=== PATIENT | male | born 1950 | race Caucasian/White ===

== ENCOUNTER 2021-03-23 19:43 | Observation (INO) | payer MEDICARE, OTHER ==
[2021-03-23] MEDS ORDERED: LORazepam 2 MG/ML Syringe IM ONE (20:27)
[2021-03-23] MEDS ORDERED: Ondansetron 4 MG/2 ML SDV IVPUSH PRN (20:32)
--- NOTE | 2021-03-23 20:33 | EDM.PDOCBH ---
ED HPI GENERAL MEDICAL PROBLEM - General Chief Complaint: Drug or Alcohol Abuse Stated Complaint: DT'S Time Seen by Provider: 03/23/21 20:15 Source of Information: Reports: Patient, Family (god son), RN History Limitations: Reports: No Limitations - History of Present Illness INITIAL COMMENTS - FREE TEXT/NARRATIVE: Presents to the ER with complaints of shaking uncontrollably, alcoholism and possible withdrawals. He started drinking in September after being sober for about 6.5 years. Started with wine and then whiskey and now vodka. He states that he drinks at least 2 solo cups of vodka straight. Also drinking some wine with it. Today he has only had a few sips of vodka as he is shaking so bad that he can't hold the cup. He last ate last evening about 5pm. He has not had anything to eat today due to nausea. He states that he had 1 diarrhea stool when he got here. No blood in it. He did have white foamy emesis while here. No blood noted in the emesis. He denies any pain at this time. He complains of nausea. He has had some swelling to the lower legs that he feels started yesterday. States that his legs are so weak he can't walk on them. Onset: Gradual Location: Reports: Generalized - Related Data Allergies Allergy/AdvReac Type Severity Reaction Status Date / Time Penicillins Allergy Swelling Verified 03/23/21 20:48 Past Medical History Cardiovascular History: Reports: High Cholesterol, Hypertension Gastrointestinal History: Reports: GERD - Past Surgical History GI Surgical History: Reports: Appendectomy, Colonoscopy (states that he thinks he had perforated bowel after colonoscopy as he was in the hospital septic after one done.) Musculoskeletal Surgical History: Reports: Other (See Below) (ankle surgery) Social & Family History - Tobacco Use Tobacco Use Status *Q: Current Every Day Tobacco User - Alcohol Use Alcohol Use History: Yes Days Per Week of Alcohol Use: 7 Alcohol Use Frequency: Daily - Living Situation & Occupation Living situation: Reports: ED ROS GENERAL - Review of Systems Review Of Systems: See Below Constitutional: Reports: Weakness. Denies: Fever HEENT: Reports: No Symptoms Respiratory: Reports: No Symptoms Cardiovascular: Reports: Edema. Denies: Chest Pain GI/Abdominal: Reports: Diarrhea, Decreased Appetite, Vomiting. Denies: Abdominal Pain, Black Stool, Bloody Stool : Reports: No Symptoms Musculoskeletal: Reports: Other (leg weakness) Neurological: Reports: Difficulty Walking, Weakness. Denies: Seizure ED EXAM, BEHAVIORAL HEALTH - Physical Exam Exam: See Below Exam Limited By: No Limitations General Appearance: Alert, WD/WN, Moderate Distress Ears: Normal External Exam, Normal TMs Throat/Mouth: Normal Inspection, Normal Oropharynx, No Airway Compromise Head: Atraumatic, Normocephalic Neck: Normal Inspection, Supple, Non-Tender, Full Range of Motion Respiratory/Chest: No Respiratory Distress, Lungs Clear, Normal Breath Sounds. No: Rales, Rhonchi, Wheezing Cardiovascular: Regular Rate, Rhythm GI/Abdominal: Normal Bowel Sounds, Soft, Non-Tender Extremities: Pedal Edema (1+ to legs bilaterally from mid calf to the ankles.) Neurological: Alert, Normal Mood/Affect, Oriented x 3, Tremor (Has shaking to both upper extremities. Has some shaking to lower extremities but not as severe. ) Psychiatric: Alert, Normal Affect, Normal Cognition Skin Exam: Warm, Dry, Intact #1 Interpretation Rhythm: NSR [place]: Normal P-Wave: Present QRS: Normal ST-T: Normal QT: Normal COURSE, BEHAVIORAL HEALTH COMP - Course Orders, Labs, Meds: Active Orders 24 hr Category Date Time Status Chest 1V Frontal [CR] Routine Exams 03/23/21 Taken CORONAVIRUS COVID-19 RAPID [MOLEC] Routine Lab 03/23/21 21:07 Received Ondansetron [Zofran] Med 03/23/21 20:32 Active 4 mg IVPUSH Q6H PRN Medication Orders Ondansetron HCl (Ondansetron 4 Mg/2 Ml Sdv) 4 mg IVPUSH Q6H PRN PRN Reason: Nausea Last Admin: 03/23/21 20:40 Dose: 4 mg Documented by: ELENA Laboratory Tests 03/23/21 03/23/21 03/23/21 Range/Units 20:30 20:35 20:35 WBC 8.9 (4.0-11.0) 10^3/uL RBC 4.78 (4.50-6.00) x10^6/uL Hgb 15.6 (14.0-18.0) g/dL Hct 46.9 (42.0-52.0) % MCV 98.1 H (83.0-97.0) fL MCH 32.6 H (27.0-32.0) pg MCHC 33.3 (32.0-36.0) g/dL RDW Coeff of Bri 15.3 H (11.0-15.0) % Plt Count 143 L (150-400) 10^3/uL Immature Gran % (Auto) 0.2 (0.0-4.9) % Neut % (Auto) 81.3 H (41-71) % Lymph % (Auto) 8.2 L (24-44) % Towns % (Auto) 9.8 (0-10) % Eos % (Auto) 0.2 (0-6) % Baso % (Auto) 0.3 (0-1) % Neut # (Auto) 7.18 (1.80-8.00) x10^3/uL Lymph # (Auto) 0.73 (0.60-5.00) 10^3/uL Towns # (Auto) 0.87 (0.00-1.50) 10^3/uL Eos # (Auto) 0.02 (0.00-1.50) 10^3/uL Baso # (Auto) 0.03 (0.00-0.50) 10^3/uL Immature Gran # (Auto) 0.02 (0.00-0.49) 10^3/uL PT (9.7-12.3) SEC INR (0.92-1.18) APTT (23.2-32.3) SEC Sodium 143 (136-145) mEq/L Potassium 3.8 (3.5-5.0) mEq/L Chloride 100 (98-106) mEq/L Carbon Dioxide 20 L (21-32) mmol/L BUN 11 (7-18) mg/dL Creatinine 1.5 H (0.7-1.3) mg/dL Est Cr Clr Drug Dosing TNP Estimated GFR (MDRD) 46 L (>=60) mL/min Glucose 135 H (75-99) mg/dL Calcium 8.9 (8.4-10.1) mg/dL Total Bilirubin 0.6 (0.0-1.0) mg/dL AST 44 H (15-37) U/L ALT 79 H (12-78) U/L Alkaline Phosphatase 98 (46-116) U/L Lactate Dehydrogenase 236 H (100-190) U/L Creatine Kinase 266 H (35-232) U/L Troponin I High Sens 12.3 (<=76) pg/mL Total Protein 8.2 (6.4-8.2) g/dL Albumin 4.2 (3.4-5.0) g/dL Lipase 161 (73-393) U/L Urine Color (YELLOW) Urine Appearance (CLEAR) Urine pH (4.5-8.0) Ur Specific [place] (1.003-1.020) Urine Protein (NEGATIVE) mg/dL Urine Glucose (UA) (NEGATIVE) mg/dL Urine Ketones (NEGATIVE) mg/dL Urine Occult Blood (NEGATIVE) Urine Nitrite (NEGATIVE) Urine Bilirubin (NEGATIVE) Urine Urobilinogen (0.2-1.0) EU/dL Ur Leukocyte Esterase (NEGATIVE) Urine RBC (0-5) /HPF Urine WBC (0-5) /HPF Ur Squamous Epith Cells (NOT SEEN) /HPF Urine Bacteria (NOT SEEN) /HPF Ethyl Alcohol < 3 (0-3) mg/dL 03/23/21 03/23/21 Range/Units 20:35 20:35 WBC (4.0-11.0) 10^3/uL RBC (4.50-6.00) x10^6/uL Hgb (14.0-18.0) g/dL Hct (42.0-52.0) % MCV (83.0-97.0) fL MCH (27.0-32.0) pg MCHC (32.0-36.0) g/dL RDW Coeff of Bri (11.0-15.0) % Plt Count (150-400) 10^3/uL Immature Gran % (Auto) (0.0-4.9) % Neut % (Auto) (41-71) % Lymph % (Auto) (24-44) % Towns % (Auto) (0-10) % Eos % (Auto) (0-6) % Baso % (Auto) (0-1) % Neut # (Auto) (1.80-8.00) x10^3/uL Lymph # (Auto) (0.60-5.00) 10^3/uL Towns # (Auto) (0.00-1.50) 10^3/uL Eos # (Auto) (0.00-1.50) 10^3/uL Baso # (Auto) (0.00-0.50) 10^3/uL Immature Gran # (Auto) (0.00-0.49) 10^3/uL PT 9.5 L (9.7-12.3) SEC INR 0.86 L (0.92-1.18) APTT 23.4 (23.2-32.3) SEC Sodium (136-145) mEq/L Potassium (3.5-5.0) mEq/L Chloride (98-106) mEq/L Carbon Dioxide (21-32) mmol/L BUN (7-18) mg/dL Creatinine (0.7-1.3) mg/dL Est Cr Clr Drug Dosing Estimated GFR (MDRD) (>=60) mL/min Glucose (75-99) mg/dL Calcium (8.4-10.1) mg/dL Total Bilirubin (0.0-1.0) mg/dL AST (15-37) U/L ALT (12-78) U/L Alkaline Phosphatase (46-116) U/L Lactate Dehydrogenase (100-190) U/L Creatine Kinase (35-232) U/L Troponin I High Sens (<=76) pg/mL Total Protein (6.4-8.2) g/dL Albumin (3.4-5.0) g/dL Lipase (73-393) U/L Urine Color Yellow (YELLOW) Urine Appearance Clear (CLEAR) Urine pH 6.0 (4.5-8.0) Ur Specific [place] >= 1.030 H (1.003-1.020) Urine Protein 100 H (NEGATIVE) mg/dL Urine Glucose (UA) Negative (NEGATIVE) mg/dL Urine Ketones 40 H (NEGATIVE) mg/dL Urine Occult Blood Moderate H (NEGATIVE) Urine Nitrite Negative (NEGATIVE) Urine Bilirubin Negative (NEGATIVE) Urine Urobilinogen 0.2 (0.2-1.0) EU/dL Ur Leukocyte Esterase Negative (NEGATIVE) Urine RBC 5-10 H (0-5) /HPF Urine WBC 5-10 H (0-5) /HPF Ur Squamous Epith Cells Few H (NOT SEEN) /HPF Urine Bacteria Few H (NOT SEEN) /HPF Ethyl Alcohol (0-3) mg/dL Medications Generic Name Dose Route Start Last Admin Trade Name Freq PRN Reason Stop Dose Admin Ondansetron HCl 4 mg 03/23/21 20:32 03/23/21 20:40 Ondansetron 4 Mg/2 Ml Sdv IVPUSH 4 mg Q6H PRN Administration Nausea Discontinued Medications Generic Name Dose Route Start Last Admin Trade Name Freq PRN Reason Stop Dose Admin Lorazepam 1 mg 03/23/21 20:27 03/23/21 20:53 Lorazepam 2 Mg/Ml Syringe IM 03/23/21 20:28 Not Given ONETIME ONE Lorazepam 1 mg 03/23/21 20:56 03/23/21 20:43 Lorazepam 2 Mg/Ml Syringe IVPUSH 03/23/21 20:57 1 mg ONETIME ONE Administration Ondansetron HCl Confirm 03/23/21 20:59 03/23/21 20:42 Ondansetron 4 Mg/2 Ml Sdv Administered 03/23/21 21:00 Not Given Dose 4 mg .ROUTE .STK-MED ONE Re-Assessment/Re-Exam: due to him not being able to walk without assistance, dehydration, unco ntrollable shaking, vomiting and concerns for DT's he will be admitted and observed closely for DT's. Discussed with pt the need to consider rehab and he is willing to do so and would choose to go to [facility] as that is where he is from when not living in [place]. Departure - Departure Time of Disposition: 21:23 Disposition: Refer to Observation Condition: Fair Clinical Impression: Alcohol abuse, Weakness generalized Alcohol withdrawal syndrome Qualifiers: Complication of substance-induced condition: uncomplicated Qualified Code(s): F10.230 - Alcohol dependence with withdrawal, uncomplicated Vomiting Qualifiers: Vomiting type: unspecified Vomiting Intractability: non-intractable Nausea presence: with nausea Qualified Code(s): R11.2 - Nausea with vomiting, unspecified Hypertension Qualifiers: Hypertension type: primary hypertension Qualified Code(s): I10 - Essential (primary) hypertension - Discharge Information *PRESCRIPTION DRUG MONITORING PROGRAM REVIEWED*: Not Applicable *COPY OF PRESCRIPTION DRUG MONITORING REPORT IN PATIENT [place]: Not Applicable Forms: ED Department Discharge - Problem List & Annotations (1) Alcohol abuse SNOMED Code(s): 69778929 Code(s): F10.10 - ALCOHOL ABUSE, UNCOMPLICATED Status: Acute Priority: High Current Visit: Yes (2) Alcohol withdrawal syndrome SNOMED Code(s): 179888493 Code(s): F10.239 - ALCOHOL DEPENDENCE WITH WITHDRAWAL, UNSPECIFIED Status: Acute Priority: High Current Visit: Yes Qualifiers: Complication of substance-induced condition: uncomplicated Qualified Code(s): F10.230 - Alcohol dependence with withdrawal, uncomplicated (3) Hypertension SNOMED Code(s): 75017034 Code(s): I10 - ESSENTIAL (PRIMARY) HYPERTENSION Status: Chronic Priority: Low Current Visit: Yes Qualifiers: Hypertension type: primary hypertension Qualified Code(s): I10 - Essential (primary) hypertension (4) Vomiting SNOMED Code(s): 352184484 Code(s): R11.10 - VOMITING, UNSPECIFIED Status: Acute Priority: High Current Visit: Yes Qualifiers: Vomiting type: unspecified Vomiting Intractability: non-intractable Nausea presence: with nausea Qualified Code(s): R11.2 - Nausea with vomiting, unspecified (5) Weakness generalized SNOMED Code(s): 41081030 Code(s): R53.1 - WEAKNESS Status: Acute Priority: High Current Visit: Yes - Problem List Review Problem List Initiated/Reviewed/Updated: Yes - My Orders Last 24 Hours: My Active Orders 03/23/21 Chest 1V Frontal [CR] Routine 03/23/21 20:32 Ondansetron [Zofran] 4 mg IVPUSH Q6H PRN 03/23/21 21:07 CORONAVIRUS COVID-19 RAPID [MOLEC] Routine - Assessment/Plan Admission H&P: Please use this note as an admission H&P Last 24 Hours: My Active Orders 03/23/21 Chest 1V Frontal [CR] Routine 03/23/21 20:32 Ondansetron [Zofran] 4 mg IVPUSH Q6H PRN 03/23/21 21:07 CORONAVIRUS COVID-19 RAPID [MOLEC] Routine Plan: Plan is to admit observation with IV hydration and monitor for DT's. Will treat the nausea and vomiting with zofran, protonix and slowly start diet. Plan is to get treatment for the alcoholism
[2021-03-23 20:54] LABS: PTT,PARTIAL THROMBOPLSTIN TIME 23.4 SEC (23.2-32.3)
[2021-03-23 20:55] LABS: CHLORIDE,CL 100 mEq/L (98-106); SODIUM,NA 143 mEq/L (136-145)
[2021-03-23] MEDS ORDERED: LORazepam 2 MG/ML Syringe IVPUSH ONE (20:56)
[2021-03-23] MEDS ORDERED: Ondansetron 4 MG/2 ML SDV ONE (20:59)
[2021-03-23] MEDS ORDERED: LORazepam 2 MG/ML Syringe IVPUSH PRN (21:28)
[2021-03-23] MEDS ORDERED: Ondansetron 4 MG/2 ML SDV IV PRN (21:28)
[2021-03-23] MEDS: Sodium Chloride 0.9% 1,000 ML IV SCH (22:59)
[2021-03-23] MEDS: Pantoprazole 40 MG Vial IVPUSH SCH (23:00)
[2021-03-23] MEDS: Folic Acid 1 MG, Multivitamins 1 TAB, Thiamine 100 MG, Magnesium Oxide 500 MG PO SCH ×4 (23:01)
[2021-03-24] MEDS: Acetaminophen 325 MG Tab PO PRN ×2 (00:24→23:21)
[2021-03-24] MEDS: Sodium Chloride 0.9% 1,000 ML IV SCH ×3 (06:20→22:26)
[2021-03-24] MEDS: Folic Acid 1 MG, Multivitamins 1 TAB, Thiamine 100 MG, Magnesium Oxide 500 MG PO SCH ×4 (08:25)
[2021-03-24 09:27] LABS: CHLORIDE,CL 105 mEq/L (98-106); SODIUM,NA 140 mEq/L (136-145)
[2021-03-24] MEDS: Pantoprazole 40 MG Vial IVPUSH SCH ×2 (10:58→20:36)
--- NOTE | 2021-03-24 18:29 | PCM.PN ---
- General Info Date of Service: 03/24/21 Admission Dx/Problem (Free Text): Alcohol withdrawal Subjective Update: Jerrod is a 70 yo male who was admitted to the hospital from the ED yesterday secondary to alcohol withdrawal. Patient had quit drinking for 6.5 years but recently started in September again. He was extremely weak and shaking on admit. He states today he is feeling a little better. Nausea has mostly subsided. No emesis. States he continues to be shaky but feels it is better as well. States he does have a dull headache today. - Review of Systems General: Reports: Weakness HEENT: Reports: No Symptoms Pulmonary: Reports: No Symptoms Cardiovascular: Reports: No Symptoms Gastrointestinal: Reports: No Symptoms Genitourinary: Reports: No Symptoms Musculoskeletal: Reports: No Symptoms Skin: Reports: No Symptoms Neurological: Reports: Headache, Tremors Psychiatric: Reports: No Symptoms - Patient Data Vitals - Most Recent: Last Vital Signs Temp 98.9 F 03/24/21 17:35 Pulse 71 03/24/21 17:35 Resp 18 03/24/21 17:35 BP 145/94 H 03/24/21 17:35 Pulse Ox 93 L 03/24/21 17:35 Weight - Most Recent: 222 lb 14.4 oz I&O - Last 24 Hours: Intake & Output 03/24/21 03/24/21 03/24/21 06:59 14:59 22:59 Intake Total 7475 378 7797 Output Total 1025 1525 Balance 594 996 75 Lab Results Last 24 Hours: Laboratory Results - last 24 hr 03/23/21 03/23/21 03/23/21 Range/Units 20:30 20:35 20:35 WBC 8.9 (4.0-11.0) 10^3/uL RBC 4.78 (4.50-6.00) x10^6/uL Hgb 15.6 (14.0-18.0) g/dL Hct 46.9 (42.0-52.0) % MCV 98.1 H (83.0-97.0) fL MCH 32.6 H (27.0-32.0) pg MCHC 33.3 (32.0-36.0) g/dL RDW Coeff of Bri 15.3 H (11.0-15.0) % Plt Count 143 L (150-400) 10^3/uL Immature Gran % (Auto) 0.2 (0.0-4.9) % Neut % (Auto) 81.3 H (41-71) % Lymph % (Auto) 8.2 L (24-44) % [place] % (Auto) 9.8 (0-10) % Eos % (Auto) 0.2 (0-6) % Baso % (Auto) 0.3 (0-1) % Neut # (Auto) 7.18 (1.80-8.00) x10^3/uL Lymph # (Auto) 0.73 (0.60-5.00) 10^3/uL [place] # (Auto) 0.87 (0.00-1.50) 10^3/uL Eos # (Auto) 0.02 (0.00-1.50) 10^3/uL Baso # (Auto) 0.03 (0.00-0.50) 10^3/uL Immature Gran # (Auto) 0.02 (0.00-0.49) 10^3/uL PT (9.7-12.3) SEC INR (0.92-1.18) APTT (23.2-32.3) SEC Sodium 143 (136-145) mEq/L Potassium 3.8 (3.5-5.0) mEq/L Chloride 100 (98-106) mEq/L Carbon Dioxide 20 L (21-32) mmol/L BUN 11 (7-18) mg/dL Creatinine 1.5 H (0.7-1.3) mg/dL Est Cr Clr Drug Dosing TNP Estimated GFR (MDRD) 46 L (>=60) mL/min Glucose 135 H (75-99) mg/dL Calcium 8.9 (8.4-10.1) mg/dL Magnesium (1.8-2.4) mg/dL Total Bilirubin 0.6 (0.0-1.0) mg/dL AST 44 H (15-37) U/L ALT 79 H (12-78) U/L Alkaline Phosphatase 98 (46-116) U/L Lactate Dehydrogenase 236 H (100-190) U/L Creatine Kinase 266 H (35-232) U/L Troponin I High Sens 12.3 (<=76) pg/mL Total Protein 8.2 (6.4-8.2) g/dL Albumin 4.2 (3.4-5.0) g/dL Lipase 161 (73-393) U/L Urine Color (YELLOW) Urine Appearance (CLEAR) Urine pH (4.5-8.0) Ur Specific [place] (1.003-1.020) Urine Protein (NEGATIVE) mg/dL Urine Glucose (UA) (NEGATIVE) mg/dL Urine Ketones (NEGATIVE) mg/dL Urine Occult Blood (NEGATIVE) Urine Nitrite (NEGATIVE) Urine Bilirubin (NEGATIVE) Urine Urobilinogen (0.2-1.0) EU/dL Ur Leukocyte Esterase (NEGATIVE) Urine RBC (0-5) /HPF Urine WBC (0-5) /HPF Ur Squamous Epith Cells (NOT SEEN) /HPF Urine Bacteria (NOT SEEN) /HPF Ethyl Alcohol < 3 (0-3) mg/dL SARS CoV-2 RNA Rapid WESLY (NEGATIVE) 03/23/21 03/23/21 03/23/21 Range/Units 20:35 20:35 21:07 WBC (4.0-11.0) 10^3/uL RBC (4.50-6.00) x10^6/uL Hgb (14.0-18.0) g/dL Hct (42.0-52.0) % MCV (83.0-97.0) fL MCH (27.0-32.0) pg MCHC (32.0-36.0) g/dL RDW Coeff of Bri (11.0-15.0) % Plt Count (150-400) 10^3/uL Immature Gran % (Auto) (0.0-4.9) % Neut % (Auto) (41-71) % Lymph % (Auto) (24-44) % [place] % (Auto) (0-10) % Eos % (Auto) (0-6) % Baso % (Auto) (0-1) % Neut # (Auto) (1.80-8.00) x10^3/uL Lymph # (Auto) (0.60-5.00) 10^3/uL [place] # (Auto) (0.00-1.50) 10^3/uL Eos # (Auto) (0.00-1.50) 10^3/uL Baso # (Auto) (0.00-0.50) 10^3/uL Immature Gran # (Auto) (0.00-0.49) 10^3/uL PT 9.5 L (9.7-12.3) SEC INR 0.86 L (0.92-1.18) APTT 23.4 (23.2-32.3) SEC Sodium (136-145) mEq/L Potassium (3.5-5.0) mEq/L Chloride (98-106) mEq/L Carbon Dioxide (21-32) mmol/L BUN (7-18) mg/dL Creatinine (0.7-1.3) mg/dL Est Cr Clr Drug Dosing Estimated GFR (MDRD) (>=60) mL/min Glucose (75-99) mg/dL Calcium (8.4-10.1) mg/dL Magnesium (1.8-2.4) mg/dL Total Bilirubin (0.0-1.0) mg/dL AST (15-37) U/L ALT (12-78) U/L Alkaline Phosphatase (46-116) U/L Lactate Dehydrogenase (100-190) U/L Creatine Kinase (35-232) U/L Troponin I High Sens (<=76) pg/mL Total Protein (6.4-8.2) g/dL Albumin (3.4-5.0) g/dL Lipase (73-393) U/L Urine Color Yellow (YELLOW) Urine Appearance Clear (CLEAR) Urine pH 6.0 (4.5-8.0) Ur Specific [place] >= 1.030 H (1.003-1.020) Urine Protein 100 H (NEGATIVE) mg/dL Urine Glucose (UA) Negative (NEGATIVE) mg/dL Urine Ketones 40 H (NEGATIVE) mg/dL Urine Occult Blood Moderate H (NEGATIVE) Urine Nitrite Negative (NEGATIVE) Urine Bilirubin Negative (NEGATIVE) Urine Urobilinogen 0.2 (0.2-1.0) EU/dL Ur Leukocyte Esterase Negative (NEGATIVE) Urine RBC 5-10 H (0-5) /HPF Urine WBC 5-10 H (0-5) /HPF Ur Squamous Epith Cells Few H (NOT SEEN) /HPF Urine Bacteria Few H (NOT SEEN) /HPF Ethyl Alcohol (0-3) mg/dL SARS CoV-2 RNA Rapid WESLY Negative (NEGATIVE) 03/24/21 Range/Units 09:17 WBC (4.0-11.0) 10^3/uL RBC (4.50-6.00) x10^6/uL Hgb (14.0-18.0) g/dL Hct (42.0-52.0) % MCV (83.0-97.0) fL MCH (27.0-32.0) pg MCHC (32.0-36.0) g/dL RDW Coeff of Bri (11.0-15.0) % Plt Count (150-400) 10^3/uL Immature Gran % (Auto) (0.0-4.9) % Neut % (Auto) (41-71) % Lymph % (Auto) (24-44) % [place] % (Auto) (0-10) % Eos % (Auto) (0-6) % Baso % (Auto) (0-1) % Neut # (Auto) (1.80-8.00) x10^3/uL Lymph # (Auto) (0.60-5.00) 10^3/uL [place] # (Auto) (0.00-1.50) 10^3/uL Eos # (Auto) (0.00-1.50) 10^3/uL Baso # (Auto) (0.00-0.50) 10^3/uL Immature Gran # (Auto) (0.00-0.49) 10^3/uL PT (9.7-12.3) SEC INR (0.92-1.18) APTT (23.2-32.3) SEC Sodium 140 (136-145) mEq/L Potassium 3.6 (3.5-5.0) mEq/L Chloride 105 (98-106) mEq/L Carbon Dioxide 27 (21-32) mmol/L BUN 10 (7-18) mg/dL Creatinine 1.0 (0.7-1.3) mg/dL Est Cr Clr Drug Dosing 69.96 Estimated GFR (MDRD) > 60 (>=60) mL/min Glucose 102 H (75-99) mg/dL Calcium 8.0 L (8.4-10.1) mg/dL Magnesium 1.7 L (1.8-2.4) mg/dL Total Bilirubin (0.0-1.0) mg/dL AST (15-37) U/L ALT (12-78) U/L Alkaline Phosphatase (46-116) U/L Lactate Dehydrogenase (100-190) U/L Creatine Kinase (35-232) U/L Troponin I High Sens (<=76) pg/mL Total Protein (6.4-8.2) g/dL Albumin (3.4-5.0) g/dL Lipase (73-393) U/L Urine Color (YELLOW) Urine Appearance (CLEAR) Urine pH (4.5-8.0) Ur Specific [place] (1.003-1.020) Urine Protein (NEGATIVE) mg/dL Urine Glucose (UA) (NEGATIVE) mg/dL Urine Ketones (NEGATIVE) mg/dL Urine Occult Blood (NEGATIVE) Urine Nitrite (NEGATIVE) Urine Bilirubin (NEGATIVE) Urine Urobilinogen (0.2-1.0) EU/dL Ur Leukocyte Esterase (NEGATIVE) Urine RBC (0-5) /HPF Urine WBC (0-5) /HPF Ur Squamous Epith Cells (NOT SEEN) /HPF Urine Bacteria (NOT SEEN) /HPF Ethyl Alcohol (0-3) mg/dL SARS CoV-2 RNA Rapid WESLY (NEGATIVE) Med Orders - Current: Current Medications Acetaminophen (Acetaminophen 325 Mg Tab) 650 mg PO Q4H PRN PRN Reason: Pain (Mild 1-3)/fever Last Admin: 03/24/21 00:24 Dose: 650 mg Documented by: Folic Acid 1 mg/ Multivitamins /Minerals/Vitamin C 1 tab/Thiamine HCl 100 mg/ Magnesium Oxide 500 mg 0 mg PO DAILY [facility] Last Admin: 03/24/21 08:25 Dose: 1 each Documented by: Enoxaparin Sodium (Enoxaparin 40 Mg/0.4 Ml Syringe) 40 mg SUBCUT Q24H [facility] Sodium Chloride (Normal Saline) 1,000 mls @ 125 mls/hr IV ASDIRECTED [facility] Last Admin: 03/24/21 14:18 Dose: 125 mls/hr Documented by: Lorazepam (Lorazepam 2 Mg/Ml Syringe) 1 mg IVPUSH Q6H PRN PRN Reason: Nausea/Vomiting Last Admin: 03/24/21 01:52 Dose: 1 mg Documented by: Ondansetron HCl (Ondansetron 4 Mg/2 Ml Sdv) 4 mg IV Q6H PRN PRN Reason: Nausea/Vomiting Pantoprazole Sodium (Pantoprazole 40 Mg Vial) 40 mg IVPUSH Q12H [facility] Last Admin: 03/24/21 10:58 Dose: 40 mg Documented by: Discontinued Medications Lorazepam (Lorazepam 2 Mg/Ml Syringe) 1 mg IM ONETIME ONE Stop: 03/23/21 20:28 Last Admin: 03/23/21 20:53 Dose: Not Given Documented by: Lorazepam (Lorazepam 2 Mg/Ml Syringe) 1 mg IVPUSH ONETIME ONE Stop: 03/23/21 20:57 Last Admin: 03/23/21 20:43 Dose: 1 mg Documented by: Ondansetron HCl (Ondansetron 4 Mg/2 Ml Sdv) 4 mg IVPUSH Q6H PRN PRN Reason: Nausea Last Admin: 03/23/21 20:40 Dose: 4 mg Documented by: Ondansetron HCl (Ondansetron 4 Mg/2 Ml Sdv) Confirm Administered Dose 4 mg .ROUTE .STK-MED ONE Stop: 03/23/21 21:00 Last Admin: 03/23/21 20:42 Dose: Not Given Documented by: - Exam General: Alert, Oriented, Cooperative, Mild Distress Neck: Supple Lungs: Clear to Auscultation, Normal Respiratory Effort Cardiovascular: Regular Rate, Regular Rhythm, No Murmurs GI/Abdominal Exam: Normal Bowel Sounds, Soft, Non-Tender, No Distention Skin: Warm, Dry, Intact Neurological: No New Focal Deficit, Other (shaking to bilateral upper and lower extremities. ) Psy/Mental Status: Alert, Normal Affect, Normal Mood - Patient Data Lab Results Last 24 hrs: Laboratory Results - last 24 hr 03/23/21 03/23/21 03/23/21 Range/Units 20:30 20:35 20:35 WBC 8.9 (4.0-11.0) 10^3/uL RBC 4.78 (4.50-6.00) x10^6/uL Hgb 15.6 (14.0-18.0) g/dL Hct 46.9 (42.0-52.0) % MCV 98.1 H (83.0-97.0) fL MCH 32.6 H (27.0-32.0) pg MCHC 33.3 (32.0-36.0) g/dL RDW Coeff of Bri 15.3 H (11.0-15.0) % Plt Count 143 L (150-400) 10^3/uL Immature Gran % (Auto) 0.2 (0.0-4.9) % Neut % (Auto) 81.3 H (41-71) % Lymph % (Auto) 8.2 L (24-44) % [place] % (Auto) 9.8 (0-10) % Eos % (Auto) 0.2 (0-6) % Baso % (Auto) 0.3 (0-1) % Neut # (Auto) 7.18 (1.80-8.00) x10^3/uL Lymph # (Auto) 0.73 (0.60-5.00) 10^3/uL [place] # (Auto) 0.87 (0.00-1.50) 10^3/uL Eos # (Auto) 0.02 (0.00-1.50) 10^3/uL Baso # (Auto) 0.03 (0.00-0.50) 10^3/uL Immature Gran # (Auto) 0.02 (0.00-0.49) 10^3/uL PT (9.7-12.3) SEC INR (0.92-1.18) APTT (23.2-32.3) SEC Sodium 143 (136-145) mEq/L Potassium 3.8 (3.5-5.0) mEq/L Chloride 100 (98-106) mEq/L Carbon Dioxide 20 L (21-32) mmol/L BUN 11 (7-18) mg/dL Creatinine 1.5 H (0.7-1.3) mg/dL Est Cr Clr Drug Dosing TNP Estimated GFR (MDRD) 46 L (>=60) mL/min Glucose 135 H (75-99) mg/dL Calcium 8.9 (8.4-10.1) mg/dL Magnesium (1.8-2.4) mg/dL Total Bilirubin 0.6 (0.0-1.0) mg/dL AST 44 H (15-37) U/L ALT 79 H (12-78) U/L Alkaline Phosphatase 98 (46-116) U/L Lactate Dehydrogenase 236 H (100-190) U/L Creatine Kinase 266 H (35-232) U/L Troponin I High Sens 12.3 (<=76) pg/mL Total Protein 8.2 (6.4-8.2) g/dL Albumin 4.2 (3.4-5.0) g/dL Lipase 161 (73-393) U/L Urine Color (YELLOW) Urine Appearance (CLEAR) Urine pH (4.5-8.0) Ur Specific [place] (1.003-1.020) Urine Protein (NEGATIVE) mg/dL Urine Glucose (UA) (NEGATIVE) mg/dL Urine Ketones (NEGATIVE) mg/dL Urine Occult Blood (NEGATIVE) Urine Nitrite (NEGATIVE) Urine Bilirubin (NEGATIVE) Urine Urobilinogen (0.2-1.0) EU/dL Ur Leukocyte Esterase (NEGATIVE) Urine RBC (0-5) /HPF Urine WBC (0-5) /HPF Ur Squamous Epith Cells (NOT SEEN) /HPF Urine Bacteria (NOT SEEN) /HPF Ethyl Alcohol < 3 (0-3) mg/dL SARS CoV-2 RNA Rapid WESLY (NEGATIVE) 03/23/21 03/23/21 03/23/21 Range/Units 20:35 20:35 21:07 WBC (4.0-11.0) 10^3/uL RBC (4.50-6.00) x10^6/uL Hgb (14.0-18.0) g/dL Hct (42.0-52.0) % MCV (83.0-97.0) fL MCH (27.0-32.0) pg MCHC (32.0-36.0) g/dL RDW Coeff of Bri (11.0-15.0) % Plt Count (150-400) 10^3/uL Immature Gran % (Auto) (0.0-4.9) % Neut % (Auto) (41-71) % Lymph % (Auto) (24-44) % [place] % (Auto) (0-10) % Eos % (Auto) (0-6) % Baso % (Auto) (0-1) % Neut # (Auto) (1.80-8.00) x10^3/uL Lymph # (Auto) (0.60-5.00) 10^3/uL [place] # (Auto) (0.00-1.50) 10^3/uL Eos # (Auto) (0.00-1.50) 10^3/uL Baso # (Auto) (0.00-0.50) 10^3/uL Immature Gran # (Auto) (0.00-0.49) 10^3/uL PT 9.5 L (9.7-12.3) SEC INR 0.86 L (0.92-1.18) APTT 23.4 (23.2-32.3) SEC Sodium (136-145) mEq/L Potassium (3.5-5.0) mEq/L Chloride (98-106) mEq/L Carbon Dioxide (21-32) mmol/L BUN (7-18) mg/dL Creatinine (0.7-1.3) mg/dL Est Cr Clr Drug Dosing Estimated GFR (MDRD) (>=60) mL/min Glucose (75-99) mg/dL Calcium (8.4-10.1) mg/dL Magnesium (1.8-2.4) mg/dL Total Bilirubin (0.0-1.0) mg/dL AST (15-37) U/L ALT (12-78) U/L Alkaline Phosphatase (46-116) U/L Lactate Dehydrogenase (100-190) U/L Creatine Kinase (35-232) U/L Troponin I High Sens (<=76) pg/mL Total Protein (6.4-8.2) g/dL Albumin (3.4-5.0) g/dL Lipase (73-393) U/L Urine Color Yellow (YELLOW) Urine Appearance Clear (CLEAR) Urine pH 6.0 (4.5-8.0) Ur Specific [place] >= 1.030 H (1.003-1.020) Urine Protein 100 H (NEGATIVE) mg/dL Urine Glucose (UA) Negative (NEGATIVE) mg/dL Urine Ketones 40 H (NEGATIVE) mg/dL Urine Occult Blood Moderate H (NEGATIVE) Urine Nitrite Negative (NEGATIVE) Urine Bilirubin Negative (NEGATIVE) Urine Urobilinogen 0.2 (0.2-1.0) EU/dL Ur Leukocyte Esterase Negative (NEGATIVE) Urine RBC 5-10 H (0-5) /HPF Urine WBC 5-10 H (0-5) /HPF Ur Squamous Epith Cells Few H (NOT SEEN) /HPF Urine Bacteria Few H (NOT SEEN) /HPF Ethyl Alcohol (0-3) mg/dL SARS CoV-2 RNA Rapid WESLY Negative (NEGATIVE) 03/24/21 Range/Units 09:17 WBC (4.0-11.0) 10^3/uL RBC (4.50-6.00) x10^6/uL Hgb (14.0-18.0) g/dL Hct (42.0-52.0) % MCV (83.0-97.0) fL MCH (27.0-32.0) pg MCHC (32.0-36.0) g/dL RDW Coeff of Bri (11.0-15.0) % Plt Count (150-400) 10^3/uL Immature Gran % (Auto) (0.0-4.9) % Neut % (Auto) (41-71) % Lymph % (Auto) (24-44) % [place] % (Auto) (0-10) % Eos % (Auto) (0-6) % Baso % (Auto) (0-1) % Neut # (Auto) (1.80-8.00) x10^3/uL Lymph # (Auto) (0.60-5.00) 10^3/uL [place] # (Auto) (0.00-1.50) 10^3/uL Eos # (Auto) (0.00-1.50) 10^3/uL Baso # (Auto) (0.00-0.50) 10^3/uL Immature Gran # (Auto) (0.00-0.49) 10^3/uL PT (9.7-12.3) SEC INR (0.92-1.18) APTT (23.2-32.3) SEC Sodium 140 (136-145) mEq/L Potassium 3.6 (3.5-5.0) mEq/L Chloride 105 (98-106) mEq/L Carbon Dioxide 27 (21-32) mmol/L BUN 10 (7-18) mg/dL Creatinine 1.0 (0.7-1.3) mg/dL Est Cr Clr Drug Dosing 69.96 Estimated GFR (MDRD) > 60 (>=60) mL/min Glucose 102 H (75-99) mg/dL Calcium 8.0 L (8.4-10.1) mg/dL Magnesium 1.7 L (1.8-2.4) mg/dL Total Bilirubin (0.0-1.0) mg/dL AST (15-37) U/L ALT (12-78) U/L Alkaline Phosphatase (46-116) U/L Lactate Dehydrogenase (100-190) U/L Creatine Kinase (35-232) U/L Troponin I High Sens (<=76) pg/mL Total Protein (6.4-8.2) g/dL Albumin (3.4-5.0) g/dL Lipase (73-393) U/L Urine Color (YELLOW) Urine Appearance (CLEAR) Urine pH (4.5-8.0) Ur Specific [place] (1.003-1.020) Urine Protein (NEGATIVE) mg/dL Urine Glucose (UA) (NEGATIVE) mg/dL Urine Ketones (NEGATIVE) mg/dL Urine Occult Blood (NEGATIVE) Urine Nitrite (NEGATIVE) Urine Bilirubin (NEGATIVE) Urine Urobilinogen (0.2-1.0) EU/dL Ur Leukocyte Esterase (NEGATIVE) Urine RBC (0-5) /HPF Urine WBC (0-5) /HPF Ur Squamous Epith Cells (NOT SEEN) /HPF Urine Bacteria (NOT SEEN) /HPF Ethyl Alcohol (0-3) mg/dL SARS CoV-2 RNA Rapid WESLY (NEGATIVE) Result Diagrams: 03/23/21 20:35 03/24/21 09:17 Sepsis Event Note - Evaluation Sepsis Screening Result: No Definite Risk - Focused Exam Vital Signs: Vital Signs Temp Pulse Resp BP Pulse Ox 03/24/21 17:35 98.9 F 71 18 145/94 H 93 L 03/24/21 12:00 97.9 F 84 18 167/91 H 94 L 03/24/21 08:00 98.9 F 67 18 145/81 H 92 L - Problem List & Annotations (1) Alcohol abuse SNOMED Code(s): 14335122 Code(s): F10.10 - ALCOHOL ABUSE, UNCOMPLICATED Status: Acute Priority: High Current Visit: Yes (2) Alcohol withdrawal syndrome SNOMED Code(s): 748931068 Code(s): F10.239 - ALCOHOL DEPENDENCE WITH WITHDRAWAL, UNSPECIFIED Status: Acute Priority: High Current Visit: Yes Qualifiers: Complication of substance-induced condition: uncomplicated Qualified Code(s): F10.230 - Alcohol dependence with withdrawal, uncomplicated (3) Weakness generalized SNOMED Code(s): 24460480 Code(s): R53.1 - WEAKNESS Status: Acute Priority: High Current Visit: Yes - Problem List Review Problem List Initiated/Reviewed/Updated: Yes - My Orders Last 24 Hours: My Active Orders 03/25/21 08:00 CBC WITH AUTO DIFF [HEME] Routine CMP [COMPREHENSIVE METABOLIC PN,CMP] [CHEM] Routine - Plan Plan:: Patient is feeling better today, not as shaky. Nursing staff admit he is unable to ambulate on his own. He doesn't want to commit to inpatient alcohol treatment at this time and would like to think about it. Will continue IV fluids and monitoring today. Will discuss again in am discharge home vs inpatient treatment.
[2021-03-24] MEDS ORDERED: Enoxaparin 40 MG/0.4 ML Syringe SUBCUT SCH (20:00)
[2021-03-25] MEDS: Sodium Chloride 0.9% 1,000 ML IV SCH (06:02)
[2021-03-25] MEDS: Folic Acid 1 MG, Multivitamins 1 TAB, Thiamine 100 MG, Magnesium Oxide 500 MG PO SCH ×4 (07:22)
[2021-03-25] MEDS ORDERED: Pantoprazole 40 MG Vial IVPUSH SCH (08:00)
[2021-03-25 08:08] LABS: CHLORIDE,CL 106 mEq/L (98-106); SODIUM,NA 143 mEq/L (136-145)
--- NOTE | 2021-03-25 11:43 | PCM.DCSUM1 ---
Discharge Summary - Hospital Course Free Text/Narrative:: Jerrod is a 70 year old male who presented to the ER shaking uncontrollably, alcohol abuse and possible withdrawals. Patient relates he had been sober for 7.5 years, had a family get together in October and started drinking again. Has not bee able to control it since that time. Has been drinking straight vodka, awake until the early am hours as drinks often until "i pass out". Had only had a couple sips of vodka on day of presentation as was shaking so bad he couldn't hold the cup. Not eating well. One loose stool and emesis prior to arrival. Sealy weak. Found to be dehydrated. Started on IV fluids, monitor for DTs. Diagnosis: Stroke: No Modified [place] Scale: No Symptoms at All Modified [place] Scale Score: 0 - Discharge Data Discharge Date: 03/25/21 Discharge Disposition: Home, Self-Care 01 Condition: Fair - Referral to Home Health Primary Care Physician: PCP Not In Area - Discharge Diagnosis/Problem(s) (1) Alcohol abuse SNOMED Code(s): 91939519 ICD Code: F10.10 - ALCOHOL ABUSE, UNCOMPLICATED Status: Acute Priority: High (2) Alcohol withdrawal syndrome SNOMED Code(s): 626741097 ICD Code: F10.239 - ALCOHOL DEPENDENCE WITH WITHDRAWAL, UNSPECIFIED Status: Acute Priority: High Qualifiers: Complication of substance-induced condition: uncomplicated Qualified Code(s): F10.230 - Alcohol dependence with withdrawal, uncomplicated - Patient Summary/Data Complications: none Hospital Course: Patient admits to feeling much better this am. Has slight tremors but admits markedly improved. He feels less anxious. Now eating without nausea or vomiting. CIWAA score down to 4. Vitals are good. Labs are stable. Much discussion held with patient in regards to ability to control drinking, remain sober while at home in [place] without getting him to a rehab today. Ketan has a good support system in [place]. Alcohol has been removed from home. needs to get his home in [place] closed up for the winter and will be returning back to [place] on Saturday and will look to get assistance for rehab from his provider, Dr. Prado, to find placement. Questioned if would need meds to help him with anxiety or cravings once home, declines them today. - Patient Instructions Diet: Usual Diet as Tolerated Activity: As Tolerated - Discharge Plan *PRESCRIPTION DRUG MONITORING PROGRAM REVIEWED*: Not Applicable *COPY OF PRESCRIPTION DRUG MONITORING REPORT IN PATIENT LIDA: Not Applicable Home Medications: Home Meds Diltiazem HCl [Cardizem LA] 300 mg DAILY 03/24/21 [History] Diltiazem [Cardizem CD] 120 mg PO DAILY 03/24/21 [History] Omeprazole 20 mg PO DAILY 03/24/21 [History] Pravastatin Sodium [Pravastatin (Pravachol)] 40 mg DAILY 03/24/21 [History] lisinopriL [Lisinopril] 10 mg PO DAILY 03/24/21 [History] Forms: ED Department Discharge Referrals: Sina Prado MD [Physician] - (Follow up with Dr. Prado upon returning to [place] this week) - Discharge Summary/Plan Comment DC Time >30 min.: Yes Total # of Minutes for Discharge Time: 15 minutes with patient 10 minutes for discharge orders 10 minutes for documentation - General Info Date of Service: 03/25/21 Admission Dx/Problem (Free Text: Alcohol withdrawal Functional Status: Reports: Pain Controlled, Tolerating Diet, Ambulating - Review of Systems General: Reports: Fatigue. Denies: Fever, Weakness, Malaise HEENT: Denies: Ear Pain, Sinus Congestion, Sore Throat Pulmonary: Denies: Shortness of Breath Cardiovascular: Denies: Chest Pain Gastrointestinal: Denies: Abdominal Pain, Nausea, Vomiting Genitourinary: Reports: No Symptoms Musculoskeletal: Reports: No Symptoms Skin: Reports: No Symptoms Neurological: Reports: Tremors - Patient Data Vitals - Most Recent: Last Vital Signs Temp 98.4 F 03/25/21 07:21 Pulse 57 L 03/25/21 07:21 Resp 16 03/25/21 07:21 BP 140/89 03/25/21 07:21 Pulse Ox 94 L 03/25/21 07:21 Weight - Most Recent: 222 lb 14.4 oz I&O - Last 24 hours: Intake & Output 03/24/21 03/25/21 03/25/21 22:59 06:59 14:59 Intake Total 2600 1850 Output Total 1525 2300 Balance 1075 -450 Lab Results - Last 24 hrs: Laboratory Results - last 24 hr 03/25/21 03/25/21 Range/Units 08:00 08:00 WBC 5.0 (4.0-11.0) 10^3/uL RBC 4.39 L (4.50-6.00) x10^6/uL Hgb 14.2 (14.0-18.0) g/dL Hct 42.1 (42.0-52.0) % MCV 95.9 (83.0-97.0) fL MCH 32.3 H (27.0-32.0) pg MCHC 33.7 (32.0-36.0) g/dL RDW Coeff of Bri 14.4 (11.0-15.0) % Plt Count 93 L (150-400) 10^3/uL Immature Gran % (Auto) 0.2 (0.0-4.9) % Neut % (Auto) 63.4 (41-71) % Lymph % (Auto) 20.3 L (24-44) % [place] % (Auto) 12.7 H (0-10) % Eos % (Auto) 3.2 (0-6) % Baso % (Auto) 0.2 (0-1) % Neut # (Auto) 3.15 (1.80-8.00) x10^3/uL Lymph # (Auto) 1.01 (0.60-5.00) 10^3/uL [place] # (Auto) 0.63 (0.00-1.50) 10^3/uL Eos # (Auto) 0.16 (0.00-1.50) 10^3/uL Baso # (Auto) 0.01 (0.00-0.50) 10^3/uL Immature Gran # (Auto) 0.01 (0.00-0.49) 10^3/uL Sodium 143 (136-145) mEq/L Potassium 3.5 (3.5-5.0) mEq/L Chloride 106 (98-106) mEq/L Carbon Dioxide 23 (21-32) mmol/L BUN 9 (7-18) mg/dL Creatinine 1.0 (0.7-1.3) mg/dL Est Cr Clr Drug Dosing 69.96 mL/min Estimated GFR (MDRD) > 60 (>=60) mL/min Glucose 72 L D (75-99) mg/dL Calcium 8.2 L (8.4-10.1) mg/dL Total Bilirubin 0.7 (0.0-1.0) mg/dL AST 44 H (15-37) U/L ALT 62 (12-78) U/L Alkaline Phosphatase 74 (46-116) U/L Total Protein 6.8 (6.4-8.2) g/dL Albumin 3.2 L (3.4-5.0) g/dL Med Orders - Current: Current Medications Discontinued Medications Acetaminophen (Acetaminophen 325 Mg Tab) 650 mg PO Q4H PRN PRN Reason: Pain (Mild 1-3)/fever Last Admin: 03/24/21 23:21 Dose: 650 mg Documented by: Folic Acid 1 mg/ Multivitamins /Minerals/Vitamin C 1 tab/Thiamine HCl 100 mg/ Magnesium Oxide 500 mg 0 mg PO DAILY [facility] Last Admin: 03/25/21 07:22 Dose: 1 each Documented by: Enoxaparin Sodium (Enoxaparin 40 Mg/0.4 Ml Syringe) 40 mg SUBCUT Q24H [facility] Last Admin: 03/24/21 20:36 Dose: 40 mg Documented by: Sodium Chloride (Normal Saline) 1,000 mls @ 125 mls/hr IV ASDIRECTED [facility] Last Admin: 03/25/21 06:02 Dose: 125 mls/hr Documented by: Lorazepam (Lorazepam 2 Mg/Ml Syringe) 1 mg IM ONETIME ONE Stop: 03/23/21 20:28 Last Admin: 03/23/21 20:53 Dose: Not Given Documented by: Lorazepam (Lorazepam 2 Mg/Ml Syringe) 1 mg IVPUSH ONETIME ONE Stop: 03/23/21 20:57 Last Admin: 03/23/21 20:43 Dose: 1 mg Documented by: Lorazepam (Lorazepam 2 Mg/Ml Syringe) 1 mg IVPUSH Q6H PRN PRN Reason: Nausea/Vomiting Last Admin: 03/24/21 01:52 Dose: 1 mg Documented by: Ondansetron HCl (Ondansetron 4 Mg/2 Ml Sdv) 4 mg IVPUSH Q6H PRN PRN Reason: Nausea Last Admin: 03/23/21 20:40 Dose: 4 mg Documented by: Ondansetron HCl (Ondansetron 4 Mg/2 Ml Sdv) Confirm Administered Dose 4 mg .ROUTE .STK-MED ONE Stop: 03/23/21 21:00 Last Admin: 03/23/21 20:42 Dose: Not Given Documented by: Ondansetron HCl (Ondansetron 4 Mg/2 Ml Sdv) 4 mg IV Q6H PRN PRN Reason: Nausea/Vomiting Pantoprazole Sodium (Pantoprazole 40 Mg Vial) 40 mg IVPUSH Q12H [facility] Last Admin: 03/24/21 20:36 Dose: 40 mg Documented by: Pantoprazole Sodium (Pantoprazole 40 Mg Vial) 40 mg IVPUSH Q12H [facility] Last Admin: 03/25/21 07:25 Dose: 40 mg Documented by: - Exam General: Reports: Alert, Oriented HEENT: Reports: Mucous Membr. Moist/[place] Neck: Reports: Supple Lungs: Reports: Clear to Auscultation, Normal Respiratory Effort Cardiovascular: Reports: Regular Rate, Regular Rhythm GI/Abdominal Exam: Normal Bowel Sounds, Soft, Non-Tender Extremities: Normal Inspection, No Pedal Edema Skin: Reports: Warm, Dry Neurological: Reports: Other (hand tremors noted)
== END 2021-03-25 11:07 | disposition home or self-care (01) ==
LOC: CC.ED 19:43 → UNDOADMOB 21:09 → CC.MS 21:09
PROVIDERS: ADMIT Physician Assistant Medical; ATTEND Family Medicine
DX: F10.230 Alcohol dependence with withdrawal, uncomplicated (principal); E78.00 Pure hypercholesterolemia, unspecified; I10 Essential (primary) hypertension; K21.9 Gastro-esophageal reflux disease without esophagitis; F17.200 Nicotine dependence, unspecified, uncomplicated; Z90.49 Acquired absence of other specified parts of digestive tract; Z88.0 Allergy status to penicillin; Z98.890 Other specified postprocedural states; Z79.899 Other long term (current) drug therapy; Z20.822 Contact with and (suspected) exposure to COVID-19
CPT/HCPCS: 36415; 71045; 80048; 80053; 80307; 81001; 82550; 83615; 83690; 83735; 84484; 85025; 85610; 85730; 93005; 96372; 96374; 96375; 96376; 99285-25; A9270-GY; C9113; G0378; J1650; J2060; J2405; J7030; U0002